=== PATIENT | male | born 1985 | race Caucasian/White ===

== ENCOUNTER 2025-02-14 07:51 | Emergency (ER) | payer OTHER, SELFPAY ==
--- OUTSIDE RECORDS SUMMARY | 2025-01-23 11:24 | XMS_ITS | Encounter Summary ---
Author Organization [place] Address [address] [place] [address] Care Team Providers Care Tax Director Name Role Phone Maryse Rachel Primary Care Provider [phone] Reason for Visit * Reason Comments Hand Pain Encounter Details Date Type Department Care Team (Late st Contact Info) Description 01/23/2025 11:24 AM CDT - 01/23/2025 12:08 PM CDT Emergency [facility] Emergency Dept [address] [place] [id number] Sharon Sales MD [facility] [address] [place], [place] [id number] Contusion of right hand, initial encounter (Primary Dx) Discharge Disposition: Home or Self Care Social History Tobacco Use Types Packs/Day Years Used Date Smoking Tobacco: Every Day Cigarettes Smokeless Tobacco: Never Comments:patient states he i s working on it Alcohol Use Standard Drinks/Week Comments Yes 0 (1 standard drink = 0.6 oz pur e alcohol) occasionally, socially PHQ-2 Answer Date Recorded PHQ-2 Score 2 07/12/2018 Sex and Gender Information Value Date Recorded Sex Assigned at Not on file Legal Sex Male 3:18 PM CDT Gender Identity Not on file Sexual Orientation Not on file documented as of this encounter Last Filed Vital Signs Vital Sign Reading Time Taken Comments Blood Pressure 148/105 01/23/2025 11:[address] Sales aware Pulse 81 01/23/2025 11:55 AM CDT Temperature 36.9 C (98.4 F) 01/23/2025 11:23 AM CDT Respiratory Rate 17 01/23/2025 11:2 3 AM CDT Oxygen Saturation 100% 01/23/2025 11: 55 AM CDT Inhaled Oxygen Concentration - - Weight 98.7 kg (217 lb 9.5 oz) 01/23/2025 11:21 AM CDT Height 190.5 cm (6' 3) 01/23/2025 11:2 1 AM CDT Body Mass Index 27.2 01/23/2025 11:21 AM CDT documented in this encounter Discharge Instructions * Attachments The following attachments cannot be sent through Care Everywhere. * Contusion: Hand (Chilean) documented in this encounter Medications at Time of Discharge citalopram (CELEXA) 20 MG tabletIndications :Panic attack,Anxiety Take 1.5 tablets (30 mg) by mouth daily 135 tablet 3 04/29/2016 Esomeprazole Magnesium (NEXIUM PO) Take 40 mg by mouth every morning (before breakfast) gabapentin (NEURONTIN) 300 MG capsuleIndication s:Anxiety Take 1 capsule (300 mg) by mouth 3 times daily 60 capsule 01/20/2017 naproxen sodium (ALEVE) 220 MG tablet Take by mouth 2 times daily (with meals) SUBOXONE 8-2 MG film 0 04/28/2016 documented as of this encounter ED Notes * Livia Luis RN - 01/23/2025 11:29 AM CDT Ice pack provided * Sharon Sales MD - 01/23/2025 11:25 AM CDT Emergency Department Note History of Present Illness Chief Complaint Hand Pain HPI Edwin Heredia is a 39 year old male with a history of hypertension and prediabetes who is predominately right handed, presents to the emergency department for evaluation of hand pain. The patient reports his right hand getting slammed in the door when he tried to get a bolt lose, prompting his visi t to the ED today. The accident happened around 1000. His hand has been slammed before but this time, he endorses hand shaking which is new. 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 Along with the hand pain, he endorses numbness in his right thumb. He reports no other injuries. Independent Historian None Review of External Notes I reviewed the patient's family medicine note from 01/16, which reports the patient seemed in pain and hoarse, with a lump in his throat, feeling like something was stuck in his throat. From the visit, he was put on Esomeprazole. Past Medical History Medical History and Problem List GERD Hypertriglyceridemia Hypothyroidism Hypertension Prediabetes Medications celecoxib (CELEBREX) 200 MG capsule citalopram (CELEXA) 20 MG tablet Esomeprazole Magnesium (NEXIUM PO) gabapentin (NEURONTIN) 300 MG capsule naproxen sodium (ALEVE) 220 MG tablet SUBOXONE 8-2 MG film Suboxone sl Neurontin Wellbutrin xl Buspar Cipro Folvite Prilosec Deltasone Celexa Surgical History EGD Ir gastro jejunostomy tube placement Ir renal angiogram left Laparoscopic cholecystectomy Physical Exam Patient Vitals for the past 24 hrs: BP Temp Temp src Pulse Resp SpO2 Height Weight 01/23/25 1155 -- -- -- 81 -- 100 % -- -- 01/23/25 1150 (!) 148/105 -- -- -- -- -- -- -- 01/23/25 1123 (!) 174/114 98.4 ??F (36.9 ??C) Temporal 86 17 97 % -- -- 01/23/25 1121 -- -- -- -- -- -- 1.905 m (6' 3) 98.7 kg (217 lb 9.5 oz) Physical Exam General: Patient is awake and alert MSK: Patient has mild tenderness to the right snuffbox but most of the tenderness is centered over the first metacarpal with associated soft tissue swelling. No lacerations. Patient has no tendernessto palpation of wrist, elbow, proximal forearm, or remainder of fingers. He has intact 2 point discrimination to the right thumb, normal okay sign/thumb abduction, interosseous muscle strength, and wrist extension Diagnostics Lab Results Labs Ordered and Resulted from Time of ED Arrival to Time of ED Departure - No data to display Imaging XR Hand Right G/E 3 Views Final Result Addendum (preliminary) 1 of 1 ADDENDUM: There is a typographical error in the report. It should read No evidence of a fracture. Normal alignment. No degenerative changes. END ADDENDUM Final IMPRESSION: N0N0 Joint spaces are preserved. Independent Interpretation None ED Course Medications Administered Medications - No data to display Procedures Procedures Discussion of Management None ED Course ED Course as of 01/23/25 1219 TueJan 23, 2025 1142 I obtained history and examined the patient as noted above Additional Documentation None Medical Decision Making / Diagnosis [facility] Diagnoses: None MIPS None MDM Edwin Heredia is a 39 year old male presents for evaluation of right hand pain after he slammed itagainst metal. X-ray shows no evidence of fracture. Patient is neurovascular intact, low suspicion for compartment syndrome given mechanism but will return if worsening. Had minimal snuffbox tenderness but given that this is Worker's Compensation visit, can follow-up with orthopedic surgery in 1 week for possible repeat x-ray. Blood pressure was also elevated here, he does have a PCP, reports that his blood pressure has been elevated the past several weeks, he will continue to monitor this at home and follow-up with PCP for this no other symptoms of hypertensive emergency. Can take Tylenol ibuprofen for pain. Disposition The patient was discharged. Diagnosis ICD-10-CM 1. Contusion of right hand, initial encounter S60.221A Discharge Medications Discharge Medication List as of 01/23/2025 11:57 AM Scribe Disclosure: I, Haleigh Christine, am serving as a scribe at 12:06 PM on 01/23/2025 to document services personallyperformed by Shaorn Sales MD based on my observations and the provider's statements to me. Sharon Sales MD 01/23/25 1219 * Precious Becerra RN - 01/23/2025 11:21 AM CDT Pt complains of R hand pain after accidentally slamming it against a metal door. documented in this encounter Plan of Treatment Not on file documented as of this encounter Procedures Procedure Name Priority Date/Time Associated Diagnosis Comments XR HAND RIGHT G/E 3 VIEWS STAT 01/23/2025 11:45 AM CDT documented in this encounter Results * XR Hand Right G/E 3 Views (01/23/2025 11:45 AM CDT) Anatomical Region Laterality Modality Hand, Wrist Right Computed Radiogr aphy 01/23/2025 11:4 5 AM CDT Addenda Addendum by Miquel Cardenas MD on 01/23/2025 12:01 PM CDT ADDENDUM: There is a typographical error in the report. It should read No evidence of a fracture. Normal alignment. No degenerative changes. END ADDENDUM Impressions 01/23/2025 11:49 AM CDT IMPRESSION: N0N0 Joint spaces are preserved. Narrative 01/23/2025 11:49 AM CDT EXAM: XR HAND RIGHT G/E 3 VIEWS LOCATION: [facility] DATE: 01/23/2025 INDICATION: trauma COMPARISON: None. Procedure Note Rd Hoffman MD / Miquel Cardenas MD - 01/23/2025 EXAM: XR HAND RIGHT G/E 3 VIEWS LOCATION: [facility] DATE: 01/23/2025 INDICATION: trauma COMPARISON: None. IMPRESSION: N0N0 Joint spaces are preserved. 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
[2025-02-14 07:56] VITALS: BP 131/75; PULSE 66; RESP 18; TEMP 36.6; O2SAT 97; BMI 26.9
--- NOTE | 2025-02-14 08:03 | ED.GENADULT ---
HPI - General Adult General Date Seen: 02/14/25 Chief complaint: Laceration/Wound Stated complaint: right thump cut Time Seen by Provider: 02/14/25 07:54 History of Present Illness HPI narrative: 39-year-old gentleman presenting to the ER today with a work related laceration to his right throughout. He was work this morning when he accidentally cut his right thumb on a piece of sharp metal. Patient is unsure about his tetanus status but per medical record he was updated 4 years ago in 2020. He is generally healthy. No long-term medical problems or immunosuppression. He accidentally cut the dorsum of his right thumb at work this morning. 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 He suffered a laceration because the dorsum of the MCP joint of his thumb and the dorsum of the thenar eminence and webspace between his thumb and index finger. The laceration is probably 5-6 cm total length but most of it is very superficial. Over the radial and laceration directly over the dorsal MCP there is a deeper portion of the laceration that does penetrate through the dermis and gapes 2-3 mm when he flexes his thumb. He did not injure the tendons. No numbness in his thumb. It was having dark red venous nonpulsatile oozing that was brisk at 1st but was easily controlled by direct pressure. No longer bleeding. No other injuries. Related Data Home Medications ?Medication ?Instructions ?Recorded ?Confirmed buprenorphine 8 mg-naloxone 2 mg 1 film sublingual DAILY 02/14/25 02/14/25 sublingual film (Suboxone) bupropion HCl 75 mg tablet 300 mg PO DAILY 02/14/25 02/14/25 buspirone 5 mg tablet 5 mg PO TID 02/14/25 02/14/25 fluoxetine 40 mg capsule 40 mg PO DAILY 02/14/25 02/14/25 gabapentin 600 mg tablet 1,200 mg PO BID 02/14/25 02/14/25 omeprazole 40 mg capsule,delayed 40 mg PO DAILY 02/14/25 02/14/25 release prednisone 10 mg tablet 8 mg PO DAILY 02/14/25 02/14/25 Allergies Allergy/AdvReac Type Severity Reaction Status Date / Time No Known Drug Allergies Allergy Verified 02/14/25 08:08 Exam Narrative: Exam Narrative: Constitutional: Appears well-developed and well-nourished. Alert. Conversant. Non toxic. HENT: Head: Atraumatic. Nose: Nose normal. Mouth/Throat: Oral mucosa is clear and moist. no trismus. Eyes: Conjunctivae normal. EOM normal. Pupils equal, round, and reactive to light. No scleral icterus. Neck: Normal range of motion. Neck supple. No tracheal deviation present. Cardiovascular: Normal rate, regular rhythm. Normal distal cap refill Symmetric radial artery pulses Pulmonary/Chest: Effort normal. No stridor. No respiratory distress. Musculoskeletal: RUE: Patient does have a laceration on the dorsum of his thumb. It is about 5 or 6 cm total length. Most laceration is very superficial and really barely penetrates through the epidermis. On the radial and a laceration the 2 tooth cm directly over the dorsal MCP joint are deeper and the wound opens up about 3 mm when he flexes his thumb down. He does have intact thumb extension, opposition, abduction. Wound is inspected carefully in a bloodless field. No foreign body. It does not penetrate down to the extensor tendon, into the joint capsule of the MCP joint, and does not involve the digital nerves or arterial structures. Otherwise, Normal range of motion. No tenderness. No deformity LUE: Normal range of motion. No tenderness. No deformity RLE: Normal range of motion. No edema. No tenderness. No deformity LLE: Normal range of motion. No edema. No tenderness. No deformity Neurological: Alert and oriented to person, place, and time. Normal strength. CN II-VII intact. No sensory deficit. GCS eye subscore is 4. GCS verbal subscore is 5. GCS motor subscore is 6. Normal coordination . Intact radial and digital nerve sensory function on the radial and ulnar side of the thumb. Skin: Skin is warm and dry. No rash noted. No pallor. Normal capillary refill. Psychiatric: Normal mood. Normal affect. Const: Vital Signs, click to edit/add: Vital Signs - 24 hr 02/14/25 07:56 Temperature 97.8 F Pulse Rate [Pulse Oximeter] 66 Respiratory Rate 18 Blood Pressure [Le ft Upper Arm] 131/75 Pulse Oximetry 97 Oxygen Delivery Me thod Room Air Course Vital Signs Vital signs: Initial Vital Signs Temperature 97.8 F 02/14/25 07:56 Temperature Source Temporal Artery Scan 02/14/25 07:56 Pulse Rate 66 02/14/25 07:56 Pulse Rhythm Regular 02/14/25 07:56 Respiratory Rate 18 02/14/25 07:56 Blood Pressure 131/75 02/14/25 07:56 Blood Pressure Mean 93 02/14/25 07:56 Blood Pressure Position Sitting 02/14/25 07:56 Pulse Oximetry 97 02/14/25 07:56 Oxygen Delivery Method Room Air 02/14/25 07:56 Vital Signs Temperature 97.8 F 02/14/25 07:56 Pulse Rate 66 02/14/25 07:56 Respiratory Rate 18 02/14/25 07:56 Blood Pressure 131/75 02/14/25 07:56 Pulse Oximetry 97 02/14/25 07:56 Oxygen Delivery Method Room Air 02/14/25 07:56 Temperature 97.8 F 02/14/25 07:56 Pulse Rate 66 02/14/25 07:56 Respiratory Rate 18 02/14/25 07:56 Blood Pressure 131/75 02/14/25 07:56 Pulse Oximetry 97 02/14/25 07:56 Oxygen Delivery Method Room Air 02/14/25 07:56 Medical Decision Making MDM Narrative Medical decision making narrative: Findings and exam are consistent with an uncomplicated laceration which was repaired as noted above. There is no evidence at this time to suggest any associated fracture or foreign body. There is no evidence to suggest tendon or arterial injury and patient is neurologically in tact. The patient is to follow up for suture removal as instructed in 8 days. Indications to seek urgent reevaluation and signs of infection (including but not limited to increasing pain, redness, swelling, fevers, and drainage) were reviewed. Tetanus is up-to-date. This is a clean and non-contaminated wound in which prophylactic antibiotics are not indicated. An understanding of the discharge instructions and need for follow up were verbally confirmed. Discharge Plan Discharge Clinical Impression: Laceration Patient Disposition: Home, Self-Care Condition: Stable Instructions: Finger Laceration (ED) Additional Instructions: As we discussed, please see your doctor or come back to the urgent care or ER in 8 days to have your stitches removed. To care for your wound until then: Keep your antibiotic ointment and dressing on today. Keep the wound clean and dry. Starting tomorrow you can take the dressing off once per day. Wash the wound gently with a gauze with warm water. You do not have to use expensive soaps or antiseptics. Cleaned the wound gently to remove any debris or scabs. After the wound is clean, gently dabbed dry. After the wound is dry, reapply antibiotic ointment and a dressing. Keep a dressing covering the wound and stitches every day until the stitches are out so that you will not will snag your stitches during regular activities. Watch for signs of infection (redness, swelling, pus, or fever) and if you have any concerns, please return to the ER or see your doctor right away. Prescriptions: No Action prednisone 10 mg tablet 8 mg PO DAILY gabapentin 600 mg tablet 1,200 mg PO BID bupropion HCl 75 mg tablet 300 mg PO DAILY Rx Instructions: administer 6 hours apart fluoxetine 40 mg capsule 40 mg PO DAILY buspirone 5 mg tablet 5 mg PO TID buprenorphine-naloxone [Suboxone] 8-2 mg film 1 film sublingual DAILY omeprazole 40 mg capsule,delayed release(DR/EC) 40 mg PO DAILY Stand Alone Forms: [facility] Info Instructions Procedures Laceration Right thumb laceration: Verification/time out: correct patient and correct site Site: hand (Right thumb) Side (If applicable): right Size (cm): 2 Description: linear Depth: simple, single layer Local Anesthetic: bupivacaine 0.25% (Total of 2 mL, local infiltration into the laceration) Pre-repair: wound explored and irrigated extensively Skin layer closed with: nylon Size (cm): 5-0 Number of sutures: 3 Technique: simple, interrupted
--- OUTSIDE RECORDS SUMMARY | 2025-02-14 08:50 | XMS_ITS | Encounter Summary ---
Author Organization [place] Address [address] [place] [address] Care Team Providers Care Lithographer Helper Name Role Phone Maryse Rachel DO Primary Care Provider [phone] Reason for Visit * Reason Comments Orders DME ORDER Encounter Details Date Type Department Care Team (Latest Contact Info) Description 02/08/2025 Documentation Only [facility] Emergency Dept [address] [place] [address] Bebo Beltran MD Orders (DME ORDER) Social History Tobacco Use Types Packs/Day Years [...] on file documented as of this encounter Plan of Treatment Not on file documented as of this encounter Visit Diagnoses Diagnosis Contusion of right hand, initial encounter- Primary documented in this encounter Additional Health Concerns Assessment Noted Time PHQ-9 Depression Total Score: 9 07/09/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
--- OUTSIDE RECORDS SUMMARY | 2025-02-14 08:50 | XMS_ITS | Encounter Summary ---
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
--- OUTSIDE RECORDS SUMMARY | 2025-02-14 08:51 | XMS_ITS | Clinical Summary ---
Author Organization [place] Address [address] [place] [id number] Care Team Providers Care Wireless Telegrapher Name Role Phone Wilson Maryse Primary Care Provider [phone] Allergies Active Allergy Reactions Criticality Noted Date Comments No Known Allergies 04/02/2014 Olanzapine Other (See Comments),Unknown,An aphylaxis High 12/13/2021 ? Pancreatitis, internal bleeding ? pancreatitis Medications naproxen sodium (ALEVE) 220 MG tablet Take by mouth 2 times daily (with meals) Active citalopram (CELEXA) 20 MG tabletIndicatio ns:Panic attack,Anxiety Take 1.5 tablets (30 mg) by mouth daily 135 tablet 3 04/29/2016 Active SUBOXONE 8-2 MG film 0 04/28/2016 Active Esomeprazole Magnesium (NEXIUM PO) Take 40 mg by mouth every morning (before breakfast) Active celecoxib (CELEBREX) 200 MG capsule Take 1 capsule (200 mg) by mouth daily for 14 days 15 capsule 0 06/29/2016 Active gabapentin (NEURONTIN) 300 MG capsuleIndicati ons:Anxiety Take 1 capsule (300 mg) by mouth 3 times daily 60 capsule 01/20/2017 Active Active Problems Problem Noted Date Diagnosed Date Acute pain of left shoulder 07/08/2016 Tobacco use 07/08/2016 Need for prophylactic vaccin ation and inoculation against influenza 07/08/2016 Need for prophylactic vaccin ation with tetanus-diphtheria (Td) 07/08/2016 Depression 07/08/2016 History of acute pancreatitis 07/08/2016 Elevated ALT measurement 03/04/2016 Overview (08/24/2017): Overview: Since January 2016 Overview: Since January 2016 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 In brother. Cholecystitis 04/01/2014 Anxiety 10/31/2013 Encounters Date Type Department Care Team Description 02/08/2025 Documentation Only [facility] Emergency Dept [address] [place] [address] Bebo Beltran MD Orders (DME ORDER) 01/23/2025 11:24 AM CDT - 01/23/2025 12:08 PM CDT Emergency [facility] Emergency Dept [address] [place] [address] Sharon Sales MD Contusion of right hand, initial encounter (Primary Dx) Discharge Disposition: Home or Self Care 01/23/2025 Travel from Last 3 Months Immunizations Immunization Administration Dates Next Due HIB (PRP-T) 02/16/1988 HepB 03/02/2001,03/04/1998 MMR (MMRII) 03/04/1998,08/21/1990,12/16/1986 Poliovirus, inactivated (IPV) 08/21/1990 ,02/16/1988,11/18/1986,09/17/1986, TD,PF 7+ (Tenivac) 03/04/1998 TDAP Vaccine (Adacel) 07/08/2016 Family History Medical History Relation Comments Diabetes Brother type 1 Gastrointestinal Disease Father reflux Hypertension Mother Relation Status Comments Brother Father Alive Maternal Grandfather Alive Maternal Grandmother Alive Mother Alive Paternal Grandfather Paternal Grandmother Alive Social History Tobacco Use Types Packs/Day Years Used Date Smoking Tobacco: Every Day Cigarettes Smokeless Tobacco: Never Tobacco Cessation:Ready to Q uit: No Comments:patient states he is working on it Alcohol Use Standard Drinks/Week Comments Yes 0 (1 standard drink = 0.6 oz pur e alcohol) occasionally, socially PHQ-2 Answer Date Recorded PHQ-2 Score 2 07/12/2018 Sex and Gender Information Value Date Recorded Sex Assigned at Not on file Legal Sex Male 3:18 PM CDT Gender Identity Not on file Sexual Orientation Not on file Last Filed Vital Signs Vital Sign Reading [...] Mass Index 27.2 01/23/2025 11:21 AM CDT Plan of Treatment Health Maintenance Due Date Last Done Comments ADVANCE CARE PLANNING 1985 ANNUAL REVIEW OF HM ORDERS 1985 CONTROLLED SUBSTANCE AGREEMENT FOR CHRONIC PAIN MANAGEMENT 1985 NICOTINE/TOBACCO CESSATION COUNSELING Q 1 YR 1985 JA ASSESSMENT 07/08/2017 07/08/2016, 12/02, 10/01/2015, Additional history exists PHQ-9 07/08/2017 07/08/2016, 01/02, 01/26/2016, Additional history exists URINE DRUG SCREEN 08/17/2017 08/17/2016 YEARLY PREVENTIVE VISIT 02/28/2019 02/28/2018, 08/08 DIABETES SCREENING 08/17/2019 08/17/2016, 0 01/26/2016, 01/24/2016, Additional history exists COVID-19 VACCINE ( season) 2024 06/20/2023, 09/08/2021, 01/03/2021, Additional history exists PHQ-2 (once per calendar year) 2024 07/08/2016, 07/08/2016, 04/29/2016, Additional history exists INFLUENZA VACCINE (#1) 2025 3, 04/14/2022, 07/07/2021, Additional history exists DTAP/TDAP/TD VACCINE (9 - Td or Tdap) 03/23/2031 03/23/2021, 07/08/2016, 05/14/2010, Additional history exists PNEUMOCOCCAL VACCINE: PEDIATRICS (0 to 5 YEARS) AND AT-RISK PATIENTS (6 to 49 YEARS) (3 of 3 - PCV20 or PCV21) 2035 05/19/2023, 05/05/2022 ZOSTER VACCINE (1 of 2) 2035 HEPATITIS A VACCINE Completed 03/02/2001, 8 HEPATITIS B VACCINE Completed 07/07/2021, 03/02/2001, 03/02/2001, Additional history exists HIV SCREENING Completed 10/02/2022, 03/03/2016 MENINGITIS VACCINE Aged Out 05/19/2023, 04/27/2005 No longer eligible based on patient's age to complete this topic HEPATITIS C SCREENING Completed 11/07/2024 , 09/10/2021, 11/17/2018 HPV VACCINE (No Doses Required) Completed Procedures Procedure Name Priority Date/Time Associated Diagnosis Comments XR HAND RIGHT G/E 3 VIEWS STAT 01/23/2025 11:45 AM CDT DRUG ABUSE SCREEN (NL, RW) Routine 08/17/2016 4:00 PM [employer] COMPREHENSIVE METABOLIC PANEL STAT 08/17/2016 12:40 PM [employer] from Last 3 Months or Most Recently Relevant to Health Maintenance Results * XR Hand Right G/E 3 [...] XR HAND RIGHT G/E 3 VIEWS LOCATION: [facility] DATE: 01/23/2025 INDICATION: trauma COMPARISON: None. Procedure Note Rd Hoffman MD / Miquel Cardenas MD - 01/23/2025 EXAM: XR HAND RIGHT G/E 3 VIEWS LOCATION: [facility] DATE: 01/23/2025 INDICATION: trauma COMPARISON: None. IMPRESSION: N0N0 Joint spaces are preserved. us Sharon Sales MD IMG DIAGNOSTIC IMAGING ORDER ROSEMARY Edited Result - Final * (ABNORMAL) Drug abuse screen (08/17/2016 4:00 PM [employer]) Methamphetamine Qual Urine Negative Cutoff for a negative methamphetamine is 1000 ng/mL or less. [facility] Cocaine Qual Urine Negative Cutoff for a negative cocaine is 300 ng/mL or less. [facility] Cannabinoids Qual Urine Negative Cutoff for a negative cannabinoid is 50 ng/mL or less. [facility] MDMA Qual Urine Negative Cutoff for a negative MDMA (ecstasy) is 500 ng/mL or less. [facility] Methadone Qual Urine Negative Cutoff for a negative methadone is 300 ng/mL or less. [facility] Opiates Qualitative Urine Positive Cutoff for a positive opiate is greater than 300 ng/mL. This is an unconfirmed screening result to be used for medical purposes only. (A) [facility] Benzodiazepine Qual Urine Negative Cutoff for a negative benzodiazepine is 300 ng/mL or less. [facility] Tricyc Anti Qual Urine Negative Cutoff for a negative tricyclic antidepressant is 1000 ng/mL or less. [facility] Barbiturates Qual Urine Negative Cutoff for a negative barbituate is 300 ng/mL or less. [facility] PCP Qual Urine Negative Cutoff for a negative PCP is 25 ng/mL or less. [facility] Amphetamine Qual Urine Negative Cutoff for a negative amphetamine is 1000 ng/mL or less. [facility] Oxycodone Qual Urine Negative Cutoff for a negative Oxycodone is 100 ng/mL or less. [facility] Urine specimen (specimen) URINE SPECIMEN COLLECTION, CATHETERIZED / Unknown 08/17/2016 4:00 PM [employer] 08/17/2016 4:08 PM [employer] us Sukhjinder Riley MD LAB - URINE ORDERABLE S Final Result [facility] [address] [place] [address], [facility] [phone] * (ABNORMAL) Comprehensive metabolic panel (08/17/2016 12:40 PM [employer]) Sodium 141 133 - 144 mmol/L [facility] Potassium 3.3(L) 3.4 - 5.3 mmol/L [facility] Chloride 105 94 - 109 mmol/L [facility] Carbon Dioxide 29 20 - 32 mmol/L [facility] Anion Gap 7 3 - 14 mmol/L [facility] Glucose 124(H) 70 - 99 mg/dL [facility] Urea Nitrogen 16 7 - 30 mg/dL [facility] Creatinine 0.82 0.66 - 1.25 mg/dL [facility] GFR Estimate >90 Non GFR Calc >60 mL/min/1. 7m2 [facility] GFR Estimate If Black >90 GFR Calc >60 mL/min/1. 7m2 [facility] Calcium 8.1(L) 8.5 - 10.1 mg/dL [facility] Bilirubin Total 0.6 0.2 - 1.3 mg/dL [facility] Albumin 3.7 3.4 - 5.0 g/dL [facility] Protein Total 6.7(L) 6.8 - 8.8 g/dL [facility] Alkaline Phosphatase 77 40 - 150 U/L [facility] ALT 70 0 - 70 U/L [facility] AST 42 0 - 45 U/L [facility] Blood specimen (specimen) 08/17/2016 12:40 PM [employer] 08/17/2016 12:49 PM [employer] us Sukhjinder Riley MD LAB - BLOOD ORDERABLE S Final Result [facility] [address] [place], [place] [address], [facility] [phone] from Last 3 Months or Most Recently Relevant to Health Maintenance Insurance [facility] BCBS [facility] [id number] [place] [id number] Care Teams Wireless Telegrapher Relationship Specialty Start Date End Date Maryse Rachel DO [address] [place] [id number] PCP - General Family Practice 01/23/25
--- OUTSIDE RECORDS SUMMARY | 2025-02-14 08:51 | XMS_ITS | Clinical Summary ---
Author Organization [employer] & [facility] Address [address] [place] [id number] Care Team Providers Care Grounds Maintenance Supervisor Name Role Phone Maryse Rachel Primary Care Provider [phone] Allergies Active Allergy Reactions Criticality Noted Date Comments Olanzapine Other - Describe In Comment Field Low 12/13/2021 Pancreatitis, internal bleeding Medications * This document contains information received from the source organization and may not represent a complete record from that organization. Suboxone 8-[address] 1.5 Film under the tongue once daily with lunch. Active esomeprazole delayed release capsule (NEXIUM) 40 mg Take 40 mg by mouth once daily before a meal. Active clonazePAM 0.5 mg tabletIndications:A nxiety Take 1 Tablet (0.5 mg) by mouth 2 times daily if needed for Anxiety. 20 Tablet 10/12/19 25 Active predniSONE 5 mg tabletIndications:A drenal insufficiency (HC),Rheumatoid arthritis, involving unspecified site, unspecified whether rheumatoid factor present (HC) Take 1 Tablet (5 mg) by mouth once daily. 90 Tablet 10/20/19 25 Active acetaminophen 500 mg tabletIndications:C ellulitis of right lower leg Take 2 Tablets (1,000 mg) by mouth three times daily. Max acetaminophen dose: 4000mg in 24 hrs. 11/19/19 25 Active ibuprofen 600 mg tabletIndications:C ellulitis of right lower leg Take 1 Tablet (600 mg) by mouth every 6 hours if needed for Pain. Maximum of 3200 mg in 24 hours. 11/19/19 25 Active fenofibrate nanocrystallized 145 mg tabletIndications:H ypertriglyceridemia Take 1 Tablet (145 mg) by mouth once daily with a meal. 30 Tablet 12/05/19 25 Active FLUoxetine (PROZAC) 40 mg capsuleIndications: Generalized anxiety disorder with panic attacks,Depression, unspecified depression type Take 1 Capsule (40 mg) by mouth once daily. 30 Capsule 1 01/10/20 25 Active gabapentin (NEURONTIN) 600 mg tabletIndications:G eneralized anxiety disorder with panic attacks,Alcohol use disorder Take 2 Tablets (1,200 mg) by mouth two times daily. 120 Tablet 1 01/10/20 25 Active buPROPion (WELLBUTRIN XL) 300 mg Extended-Release tabletIndications:D epression, unspecified depression type,History of ADHD Take 1 Tablet (300 mg) by mouth once daily. 30 Tablet 1 01/10/20 25 Active busPIRone (BUSPAR) 5 mg tabletIndications:G eneralized anxiety disorder with panic attacks,Depression, unspecified depression type Take 1 Tablet (5 mg) by mouth three times daily. 90 Tablet 1 01/10/20 25 Active omeprazole (PRILOSEC) 20 mg Delayed-Release capsuleIndications: Gastroesophageal reflux disease, unspecified whether esophagitis present Take 2 Capsules (40 mg) by mouth two times daily before meals. 60 Capsule 01/17/20 25 2024 Active predniSONE 1 mg tabletIndications:A drenal insufficiency (HC),Rheumatoid arthritis, involving unspecified site, unspecified whether rheumatoid factor present (HC) Take 3 Tablets (3 mg) by mouth once daily with a meal. Take with 5 mg tablet for a total of 8 mg daily 270 Tablet 10/20/19 25 2024 Active Problems Problem Noted Date Diagnosed Date Hypertriglyceridemia 12/03/2024 Cellulitis of right lower extremity 11/16/2024 Opioid dependence 11/16/2024 Alcohol-induced acute pancre atitis without infection or necrosis 07/04/2024 Overview (07/04/2024): 07/04/2024 Drank alcohol last night. Vlltyu=700 with abdominal pain. EXAM: CT ABDOMEN PELVIS W LOCATION: [facility] DATE: 07/04/2024 INDICATION: Pancreatitis, acute, severe. COMPARISON: 05/13/2015 TECHNIQUE: CT scan of the abdomen and pelvis was performed following injection of IV contrast. Multiplanar reformats were obtained. Dose reduction techniques were used. CONTRAST: Omnipaque 350 100 mL FINDINGS: LOWER CHEST: Normal. HEPATOBILIARY: Cholecystectomy. PANCREAS: The pancreas is atrophic with multiple calcifications in the pancreas typical of chronic pancreatitis. Nothing for acute pancreatitis. SPLEEN: Irregularity of the splenic contour presumably related to previous infarcts. 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 ADRENAL GLANDS: Normal. KIDNEYS/BLADDER: Dense linear metallic fragment lower pole left kidney measuring approximately 10 mm. No hydronephrosis. Benign cyst right kidney requiring no follow-up. BOWEL: Normal. LYMPH NODES: Normal. VASCULATURE: Chronic occlusion of the splenic vein. PELVIC ORGANS: Normal. MUSCULOSKELETAL: Right hip arthroplasty. IMPRESSION: 1. Nothing for acute pancreatitis. 2. Changes of chronic pancreatitis. 3. 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 4. Linear structure in the lower pole of the left kidney is of metallic density presumably related to previous instrumentation. Fatty liver due to alcoholism 11/05/2023 Primary hypertension 06/20/2023 Prediabetes 03/25/2023 Overview (10/19/2024): Last Assessment & Plan: Status: Improved Testing: A1C improved from 6 to 5.5. Treatments: Healthy lifestyle Medications: Metformin Plan: Continue same. Monitor. Other osteoporosis without current pathological fracture 12/21/2022 Chronic pancreatitis 12/03/2022 Overview (10/19/2024): Last Assessment & Plan: Status: Stable. Denies symptoms currently. Testing: Reviewed abdominal imaging. CT A/P 02/14/2023 with necrotizing pancreatitis. Labs including lipase/amylase which were elevated. Treatments: Healthy lifestyle. Abstain from alcohol. Avoid fatty foods. Medications: NA Plan: Continue same. Monitor. Has follow up with [facility]. Rheumatoid arthritis 11/09/2022 Overview (10/19/2024): Last Assessment & Plan: Status: Patient not convinced this is an accurate diagnosis. Documented by rheumatology 12/2022 as history of peripheral polyarthritis, undifferentiated inflammatory arthritis. Currently denies joint pains. Testing: RF neg. Treatments: healthy lifestyle Medications: Prednisone (trying to taper off) Plan: Continue same. Monitor. Continue to follow with rheumatology, endocrinology. Clotting disorder 11/06/2022 Overview (10/19/2024): Hx of PE Moderate protein-calorie malnutrition 10/22/2022 Overview (10/19/2024): Last Assessment & Plan: Status: Slowly improving. Lost 30lbs with last hospitalization. Working on gaining some back. Testing: Protein, albumin remain low. Treatments: Healthy lifestyle. Adequate caloric and protein intake. Medications: NA Plan: Continue to work on small frequent meals, high protein. Monitor. Adrenal insufficiency 09/29/2022 Overview (10/19/2024): Last Assessment & Plan: Status: Secondary to chronic prednisone use. Currently doing well, but has struggled to tolerate dose reduction of prednisone. Testing: Reviewed endocrinology testing. Adrenal glands on CT normal. Treatments: Healthy lifestyle Medications: Prednisone Plan: Continue to work on very slow wean of prednisone. Follow up with endocrinology. 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 Treatments: Healthy lifestyle. Avoid alcohol. Medications: Previously on apixiban, stopped due to bleeding. Plan: Continue same. Monitor. Has follow up with [place]. Cochlear implant in place 05/25/2022 Asymmetrical sensorineural hearing loss 05/05/20 Moderate episode of recurrent major depressive d isorder 07/07/2021 Overview (10/19/2024): Last Assessment & Plan: Status: Ongoing. Patient states better than it was, but not great. No thoughts or intentions for self harm. Testing: Recommend PHQ9, GAD7 at least annually. Today PHQ9= 9. Treatments: Healthy lifestyle. Social support. Mindfulness. Medications: Fluoxetine, clonidine, gabapentin. Plan: Continue same. Monitor. Patient open to counseling, referral sent to T. JA (generalized anxiety disorder) 07/07/2021 Overview (10/19/2024): Last Assessment & Plan: Status: Ongoing. Patient states better than it was, but not great. Feels he has more issues with anxiety than depression. Testing: Recommend PHQ9, GAD7 at least annually. Today PHQ9= 9. Treatments: Healthy lifestyle. Social support. Mindfulness. Medications: Fluoxetine, clonidine, gabapentin. Plan: Continue same. Monitor. Patient open to counseling, referral sent to T. History of pulmonary embolism 04/12/2021 Tobacco use 07/08/2016 Elevated ALT measurement 03/04/2016 Overview (10/19/2024): Since January 2016 Since January 2016 Since January 2016 Encounter for monitoring Suboxone maintenance th erapy 03/03/2016 Controlled substance agreement signed 03/03/2016 Substance abuse in remission 03/03/2016 Overview (10/19/2024): Alcohol, Heroin, Cocaine Gastroesophageal reflux disease without esophagi tis 10/03/2015 Family history of type 1 diabetes mellitus 04/25 Overview (03/17/2016): Overview: In brother. Cholecystitis 04/01/2014 History of alcohol use disorder 04/18/2013 Hypothyroidism 05/20/2008 Overview (10/19/2024): [id number] History of acute pancreatitis Depression Anxiety Resolved Problems Problem Noted Date Diagnosed Date Resolved Date Necrotizing pancreatitis 01/21/2016 Pancolitis 01/21/2016 04/28/2016 Diarrhea 01/19/2016 03/03/2016 Thrombocytopenia 01/19/2016 12/03/2024 Alcohol withdrawal 01/17/2016 6 Alcohol-induced acute pancreatitis 01/16/2016 04/28/2016 Hypomagnesemia 01/16/2016 01/19/2016 Acid reflux 01/19/2016 Encounters Date Type Department Care Team Description 01/16/2025 1:00 PM CDT Office Visit [facility] [address] [place] [address] Nathanael Alexander NP Throat Problem (throat pain, hoarse voice, feels like he has a lump in his throat. has issues with acid reflux) 01/16/2025 Travel 01/15/2025 Nurse Triage [facility] [address] [place] [address] Maryse Rachel DO Throat Problem 01/09/2025 9:00 AM CDT Telemedicine [facility] [address] [place] [phone] Ann Wells NP Mental Health Intake; Telehealth (SD) 12/31/2024 Telephone [facility] [address] [place] [address] Ann Wells NP Appointment Reminder (Adult intake call ) 12/07/2024 2:15 PM CDT Office Visit [facility] [address] [place] [address] Heide Bradford NP Back Pain (patient presents with right sided back x4 days- he reports being admitted for pancreatitis on 12/02) 12/07/2024 Travel 12/07/2024 Nurse Triage [facility] [address] [place] [address] Maryse Rachel DO Flank Pain 12/05/2024 Patient Outreach [facility] [address] [place] [address] Tiny Felix, RN [facility] Hospital F/U (Chronic pancreatitis (HC) /DOD 12/04/24) 12/02/2024 9:47 PM CDT - 12/04/2024 8:37 AM CDT Hospital Encounter [facility] [address] [place] [address] Ela Ball MD Gooley, Brian Thomas, MD Hospitalist, [facility] Igor Soni MBBS Grunewald, Justin William, MD McQuistan, Mitesh Reyna, Acute on chronic pancreatitis (HC) (Primary Dx); Hypertriglyceridemia Discharge Disposition: Home Self Care 12/02/2024 Travel 11/22/2024 9:40 AM CDT Office Visit [facility] [address] [place] [address] Maryse Rachel DO Hospital F/U (Cellulitis ) 11/22/2024 Travel 11/19/2024 Patient Outreach [facility] [address] [place] [address] Mago Ellis, STEVIE Primary RN Care Management (LACE: 75); Hospital F/U (Diagnosis: Cellulitis of right lower extremity DOD: 11/18/24) 11/16/2024 7:14 AM CDT - 11/18/2024 10:09 AM CDT Hospital Encounter [address] [address] Derrell Cristobal MD Hospitalist, [facility] Mitesh Balbuena DO Cellulitis of right lower leg (Primary Dx) Discharge Disposition: Home Self Care 11/16/2024 Travel 11/14/2024 5:15 PM CDT - 11/14/2024 5:36 PM CDT Emergency [address] [address] Derrell Cristobal MD Cellulitis of right lower leg (Primary Dx) Discharge Disposition: Home Self Care 11/14/2024 Travel from Last 3 Months Immunizations Immunization Administration Dates Next Due DTP 03/04/1998, 1,02/16/1988,11/18,09/17/1986,02/16/1986 HIB PRP-D (ProHIBIT) 03/01/1988 HIB PRP-OMP (PedvaxHIB) 03/01/1988,02/16/1988 HIB PRP-T (ActHIB,Hiberix) 02/16/1988 Hepatitis B (Adult) 07/07/2021 Hepatitis B (Peds) 03/02/2001,03/04/1998 Hepatitis B, Unspecified 03/02/2001,02/03,03/04/1998,03/04 Hib Conjugate, Unspecified 03/01/1988,02/16/1988 INFLUENZA, IIV3 PF (AGE >= 6 MO) 08/08/2013 Inactivated Polio Vaccine 08/21/1990,,11/18/1986,09/17,02/16/1986 Influenza RIV4 (Age 18+ Year s) PRESERV FREE 04/17/2023 Influenza Virus, Unspecified 04/17/2023,04/14/20 22,07/07/2021 Influenza, IIV4 04/14/2022,07/07/2021 MENINGOCOCCAL VACCINE (MENQU ADFI 0.5ML) 2YO+ POLYSACCHARIDE PF 05/19/2023 MMR 03/04/1998,08/21/1990,12/16/1986 Meningococcal Vaccine (Menactra) 04/27/2005 Oral Polio Vaccine 02/16/1988, 7,11/08/1986,09/17,02/16/1986 Pneumococcal Poly,23-Valent (Pneumovax) 05/19/2023 Pneumococcal conj 13-Valent (Prevnar 13) 05/05/2022 Polio Virus, Unspecified 08/21/1990,02/01,11/18/1986,09/17,02/16/1986 Td (Age >=7 Years) 03/04/1998 Td, Preservative Free (age >= 7 Years) 8 Tdap 03/23/2021,07/08/2016,05/14/2010 Tuberculin (PPD) 04/17/2013 meningococcal B, Recombinant 06/20/2023,05/19/20 23 Family History Relation Name Status Comments Brother 1 Alive Brother 2 Alive Brother 3 Alive Father Alive Mother Alive Social History Tobacco Use Types Packs/Day Years Used Date Smoking Tobacco: Former Cigarettes Smokeless Tobacco: Never Tobacco Cessation:Counseling Given: No Alcohol Use Standard Drinks/Week Comments Yes 0 (1 standard drink = 0.6 oz pure alcohol) occasionally and binges at those times. PHQ-2 Answer Date Recorded PHQ-2 TOTAL SCORE 1 10/19/2024 Social Connections Answer Date Recorded Do you often feel lonely or isolated from those around you? 0 12/03/2024 Financial Resource Strain Answer Date R ecorded Difficulty of Paying Living Expenses 3 12/03/2024 Difficulty of Paying Living Expenses Not on file 12/03/2024 Food Insecurity Answer Date Recorded Do you worry your food will run out before you are able to buy more? 1 12/03/2024 Transportation Needs Answer Date Record ed Does lack of transportation keep you from medica l appointments? 1 12/03/2024 Does lack of transportation keep you from work, meetings or getting things that you need? 1 12/03/2024 Housing Stability Answer Date Recorded What is your housing situation today? 1 12/03/2024 Interpersonal Safety Answer Date Record ed Are you being hit, kicked, p ushed or yelled at (see row info)? No 12/02/2024 Interpersonal Safety Abuse 12 - 18 Not on file 12/02/2024 Interpersonal Safety Ambulatory Vulnerability No t on file 12/02/2024 Utilities Answer Date Recorded Do you have trouble paying f or utilities (for example, heat, electricity, water, phone)? 1 12/03/2024 Sex and Gender Information Value Date Recorded Sex Assigned at Not on file Legal Sex Male 3:21 PM CDT Gender Identity Not on file Sexual Orientation Not on file Occupation Industry Job Start Date Job End Date [employer] Not on file Not on file Not on file Obstetrics History Last Filed Vital Signs Vital Sign Reading Time Taken Comments Blood Pressure 140/88 01/16/2025 1:03 PM CDT Pulse 80 01/16/2025 1:03 PM CDT Temperature 37.1 C (98.7 F) 01/16/2025 1:03 PM CDT Respiratory Rate 18 01/16/2025 1:03 PM CDT Oxygen Saturation 97% 01/16/2025 1:03 PM CDT Inhaled Oxygen Concentration - - Weight 97.5 kg (215 lb) 01/16/2025 1:03 PM CDT Height 190.5 cm (6' 3) 12/03/2024 3:53 AM CDT Body Mass Index 26.87 12/03/2024 3:53 AM CDT Plan of Treatment Upcoming Encounters Date Type Department Care Team (Late st Contact Info) Description 02/25/2025 3:30 PM CDT Office Visit [facility] [id number] [place], [place] [id number] [place] [address] [facility] [place] [address] 03/06/2025 8:00 AM CDT Office Visit [facility] [address] [place] [phone] Francoise Alanis, SAM [address] [place], [place] [address] 03/12/2025 1:30 PM CDT Office Visit [facility] [address] [place], [place] [phone] Abdiaziz Nelson MD [address] [place] [address] Health Maintenance Due Date Last Done Comments Lipids for age 35-44 2020 COVID-19 vaccine series (2023- season) 2024 06/20/2023, 06/20/2023, 09/08/2021, Additional history exists Influenza Vaccine (#1) 2025 , 04/17/2023, 04/14/2022, Additional history exists BMI (ht and wt on same day) for age 18+ 10/11/2025 10/11/2024, 08/26/2016, 07/19/2016, Additional history exists Depression screening for age 12+ 10/19/2025 10/19/2024, 01/30/2016, 01/26/2016 Tetanus booster 03/23/2031 03/23/2021, 11/2016, 05/14/2010, Additional history exists Pneumococcal series for age 6-49 (3 of 3 - PCV20 or PCV21) 2035 05/19/2023, 05/05/2022 HIV for age 15-65 Completed 03/03/2016 Hepatitis B series for 19+ Completed 07/07, 03/02/2001, 03/02/2001, Additional history exists Hepatitis C screening for ag e 18-79 Completed 11/07/2024, 03/03/2016 Procedures Procedure Name Priority Date/Time Associated Diagnosis Comments CALCIUM Early AM 12/04/2024 6:14 AM CDT TRIGLYCERIDES Early AM 12/04/2024 6:14 AM CDT SODIUM Early AM 12/04/2024 6:14 AM CDT POTASSIUM Early AM 12/04/2024 6:14 AM CDT CREATININE Early AM 12/04/2024 6:14 AM CDT WHITE BLOOD COUNT Early AM 12/04/2024 6:1 4 AM CDT HEMOGLOBIN Early AM 12/04/2024 6:14 AM CDT C-REACTIVE PROTEIN Early AM 12/04/2024 6: 14 AM CDT LACTATE VENOUS Today 12/03/2024 1:09 PM CDT CALCIUM Today 12/03/2024 1:09 PM CDT TRIGLYCERIDES Today 12/03/2024 1:09 PM CDT WHITE BLOOD COUNT Today 12/03/2024 1:0 9 PM CDT HEMOGLOBIN Today 12/03/2024 1:09 PM CDT CREATININE Today 12/03/2024 1:09 PM CDT POTASSIUM Today 12/03/2024 1:09 PM CDT BUN Today 12/03/2024 1:09 PM CDT SODIUM Today 12/03/2024 1:[address] ABDOMEN PELVIS W STAT 12/02/2024 1 1:23 PM CDT TRIGLYCERIDES PAVEL 12/02/2024 10:00 PM CDT CBC WITH AUTO DIFFERENTIAL STAT 12/02/2024 10:00 PM CDT LIPASE STAT 12/02/2024 10:00 PM CDT COMP METABOLIC PANEL STAT 12/02/2024 10:00 PM CDT CBC WITH AUTO DIFFERENTIAL STAT 12/02/2024 10:00 PM CDT C-REACTIVE PROTEIN Early AM 11/18/2024 6: 42 AM CDT WHITE BLOOD COUNT Early AM 11/18/2024 6:4 2 AM CDT C-REACTIVE PROTEIN Early AM 11/17/2024 6: 27 AM CDT WHITE BLOOD COUNT Early AM 11/17/2024 6:2 7 AM CDT CREATININE Early AM 11/17/2024 6:27 AM CDT US VENOUS LOWER EXTREMITY RIGHT PORTABLE STAT 11/16/2024 8:08 AM CDT CBC WITH AUTO DIFFERENTIAL PAVEL 11/16/2024 7:34 AM CDT PROTIME-INR PAVEL 11/16/2024 7:34 AM CDT LACTATE VENOUS Today 11/16/2024 7:34 AM CDT CBC WITH AUTO DIFFERENTIAL PAVEL 11/16/2024 7:34 AM CDT C-REACTIVE PROTEIN PAVEL 11/16/2024 7: 34 AM CDT BASIC METABOLIC PANEL PAVEL 11/16/2024 7:34 AM CDT ANTI HCV Routine 11/07/2024 3:08 PM CDT History of inflammatory arthritis ANTI HIV 1/2 Routine 03/03/2016 12:21 PM CDT Encounter for monitoring Suboxone maintenance therapy from Last 3 Months or Most Recently Relevant to Health Maintenance Results * WHITE BLOOD COUNT (12/04/2024 6:14 AM CDT) Only the most recent of4 resultswithin the time period is included. WHITE BLOOD COUNT 4.6 4.5 - 11.0 thou/cu mm 12/04/2024 6:28 AM CDT [facility] NRBC 0.0 % 12/04/2024 6:28 AM CDT [facility] ABS NRBC 0.0 thou /cu mm 12/04/2024 6:28 AM CDT [facility] Blood BLOOD SPECIMEN / Unknown Venipuncture / Unknown 12/04/2024 6:14 AM CDT 12/04/2024 6:23 AM CDT Mitesh Thomas DO HEMATOLOGY Final Resu lt [facility] [place] [address], * (ABNORMAL) HEMOGLOBIN (12/04/2024 6:14 AM CDT) Only the most recent of2 resultswithin the time period is included. HEMOGLOBIN 12.8(L) 13.5 - 17.5 g/dL 12/04/2024 6:28 AM CDT [facility] MCV 87 80 - 100 fL 12/04/2024 6:28 AM CDT [facility] Blood BLOOD SPECIMEN / Unknown Venipuncture / Unknown 12/04/2024 6:14 AM CDT 12/04/2024 6:23 AM CDT Mitesh Thomas DO HEMATOLOGY Final Resu lt Performing Organization Address City/[facility]/ZIP Co de Phone Number [facility] [address] [place] [phone], [place] [phone] * (ABNORMAL) TRIGLYCERIDES (12/04/2024 6:14 AM CDT) Only the most recent of3 resultswithin the time period is included. TRIGLYCERIDES 347(H) <150 mg/dL 12/04/2024 6:49 AM CDT [facility] PROVIDER ORDERED STATUS RANDOM 12/04/2024 6:49 AM CDT [facility] Blood BLOOD SPECIMEN / Unknown Venipuncture / Unknown 12/04/2024 6:14 AM CDT 12/04/2024 6:23 AM CDT Mitesh Thomas DO CHEMISTRY Final Resu lt Performing Organization Address City/[facility]/ZIP Co de Phone Number [facility] [address] [place] [id number], [place] [phone] * SODIUM (12/04/2024 6:14 AM CDT) Only the most recent of2 resultswithin the time period is included. SODIUM 138 136 - 145 mmol/L 12/04/2024 6:49 AM CDT [facility] Blood BLOOD SPECIMEN / Unknown Venipuncture / Unknown 12/04/2024 6:14 AM CDT 12/04/2024 6:23 AM CDT Mitesh Thomas DO CHEMISTRY Final Resu lt [facility] [address] [place] [address], [place] [phone] * POTASSIUM (12/04/2024 6:14 AM CDT) Only the most recent of2 resultswithin the time period is included. Pathologist [facility] POTASSIUM 3.7 3.5 - 5.1 mmol/L 12/04/2024 6:49 AM CDT [facility] Blood BLOOD SPECIMEN / Unknown Venipuncture / Unknown 12/04/2024 6:14 AM CDT 12/04/2024 6:23 AM CDT Mitesh Thomas DO CHEMISTRY Final Resu lt [facility] [address] [place] [address], [place] [phone] * CREATININE (12/04/2024 6:14 AM CDT) Only the most recent of3 resultswithin the time period is included. [facility] eGFR >90 >90 mL/min/1.7 3m2 12/04/2024 6:49 AM CDT [facility] Comment:As of 2021, eG FR is calculated by the CKD-EPI creatinine equation without race adjustment. eGFR can be influenced by muscle mass, exercise, and diet. The reported eGFR is an estimation only and is only applicable if the renal function is stable. CREATININE 0.96 0.70 - 1.20 mg/dL 12/04/2024 6:49 AM CDT [facility] Blood BLOOD SPECIMEN / Unknown Venipuncture / Unknown 12/04/2024 6:14 AM CDT 12/04/2024 6:23 AM CDT us Mitesh Thomas DO CHEMISTRY Final Resu lt [facility] [address] [place] [address], [place] [phone] * (ABNORMAL) C-REACTIVE PROTEIN (12/04/2024 6:14 AM CDT) Only the most recent of4 resultswithin the time period is included. C-REACTIVE PROTEIN 0.8(H) <0.5 mg/dL 12/04/2024 6:49 AM CDT [facility] Blood BLOOD SPECIMEN / Unknown Venipuncture / Unknown 12/04/2024 6:14 AM CDT 12/04/2024 6:23 AM CDT us Mitesh Thomas DO CHEMISTRY Final Resu lt [facility] [address] [place] [address], * CALCIUM (12/04/2024 6:14 AM CDT) Only the most recent of2 resultswithin the time period is included. CALCIUM 8.9 8.8 - 10.4 mg/dL 12/04/2024 6:49 AM CDT [facility] Comment: Reference ranges for this test were updated on 05/08/2024 to reflect our healthy population more accurately. Reference range changes are not retroactively applied to results, but previous results using the same methodology can be interpreted in the context of the new reference range. Blood BLOOD SPECIMEN / Unknown Venipuncture / Unknown 12/04/2024 6:14 AM CDT 12/04/2024 6:23 AM CDT us Mitesh Thomas DO CHEMISTRY Final Resu lt [facility] [address] [place] [address], * LACTATE VENOUS (12/03/2024 1:09 PM CDT) Only the most recent of2 resultswithin the time period is included. LACTATE,VENOUS 1.2 0.5 - 2.0 mmol/L 12/03/2024 1:36 PM CDT [facility] Blood BLOOD SPECIMEN / Unknown Butterfly / Unknown 12/03/2024 1:09 PM CDT 12/03/2024 1:12 PM CDT Mitesh Thomas DO CHEMISTRY Final Resu lt Performing Organization Address City/[facility]/ZIP Co de Phone Number [facility] [address] [place] [id number], * BUN (12/03/2024 1:09 PM CDT) BUN 14 6 - 20 mg/dL 12/03/2024 1:34 PM CDT [facility] Blood BLOOD SPECIMEN / Unknown Butterfly / Unknown 12/03/2024 1:09 PM CDT 12/03/2024 1:12 PM CDT Mitesh Thomas DO CHEMISTRY Final Resu lt [facility] [address] [place] [id number], * CT ABDOMEN PELVIS W (12/02/2024 11:23 PM CDT) Anatomical Region Laterality Modality Abdomen, Pelvis, AORTA, LIVER, SPLEEN Computed Tomography 12/02/2024 11:2 3 PM CDT Impressions 12/02/2024 11:54 PM CDT 1. Mild acute on chronic pancreatitis. No evidence for necrosis or other complication. Narrative 12/02/2024 11:54 PM CDT For Patients: As a result of the Century Cures Act, medical imaging exams and procedure reports are released immediately into your electronic medical record. You may view this report before your referring provider. If you have questions, please contact your health care provider. EXAM: CT ABDOMEN PELVIS W LOCATION: [facility] DATE: 12/02/2024 INDICATION: Abdominal pain, acute, nonlocalized pancreatitis COMPARISON: 07/04/24. TECHNIQUE: CT scan of the abdomen and pelvis was performed following injection of IV contrast. Multiplanar reformats were obtained. Dose reduction techniques were used. CONTRAST: Omnipaque 350 115mL FINDINGS: LOWER CHEST: Normal. HEPATOBILIARY: Mild hepatic steatosis and hepatomegaly. Prior cholecystectomy PANCREAS: Mild inflammation around the pancreatic head. Scattered pancreatic calcification and mild ductal ectasia. SPLEEN: Unchanged mild cortical scarring. ADRENAL GLANDS: Normal. KIDNEYS/BLADDER: No mass or hydronephrosis. BOWEL: Normal. LYMPH NODES: Normal. VASCULATURE: No aneurysm. Chronic splenic vein occlusion with collaterals. PELVIC ORGANS: Normal. MUSCULOSKELETAL: Prior right hip replacement. Procedure Note Edwin Sanchez MD - 12/02/2024 For Patients: As a result of the Cures Act, medical imagingexams and procedure reports are released immediately into your electronicmedical record. You may view this report before your referring provider.If you have questions, please contact your health care provider. EXAM: CT ABDOMEN PELVIS W LOCATION: [facility] DATE: 12/02/2024 INDICATION: Abdominal pain, acute, nonlocalized pancreatitis COMPARISON: 07/04/24. TECHNIQUE: CT scan of the abdomen and pelvis was performed followinginjection of IV contrast. Multiplanar reformats were obtained. Dosereduction techniques were used. CONTRAST: Omnipaque 350 115mL FINDINGS: LOWER CHEST: Normal. HEPATOBILIARY: Mild hepatic steatosis and hepatomegaly. Priorcholecystectomy PANCREAS: Mild inflammation around the pancreatic head. Scatteredpancreatic calcification and mild ductal ectasia. SPLEEN: Unchanged mild cortical scarring. ADRENAL GLANDS: Normal. KIDNEYS/BLADDER: No mass or hydronephrosis. BOWEL: Normal. LYMPH NODES: Normal. VASCULATURE: No aneurysm. Chronic splenic vein occlusion withcollaterals. PELVIC ORGANS: Normal. MUSCULOSKELETAL: Prior right hip replacement. IMPRESSION: 1. Mild acute on chronic pancreatitis. No evidence for necrosis or othercomplication. us Ela Ball MD CT Final Re sult * CBC WITH AUTO DIFFERENTIAL (12/02/2024 10:00 PM CDT) Only the most recent of2 resultswithin the time period is included. WHITE BLOOD COUNT 7.3 4.5 - 11.0 thou/cu mm 12/02/2024 10:49 PM CDT [facility] RED BLOOD COUNT 5.12 4.30 - 5.90 mil/cu mm 12/02/2024 10:49 PM CDT [facility] HEMOGLOBIN 14.9 13.5 - 17.5 g/dL 12/02/2024 10:49 PM CDT [facility] HEMATOCRIT 44.1 37.0 - 53.0 % 12/02/2024 10:49 PM CDT [facility] MCV 86 80 - 100 fL 12/02/2024 10:49 PM CDT [facility] MCH 29.1 26.0 - 34.0 pg 12/02/2024 10:49 PM CDT [facility] MCHC 33.8 32.0 - 36.0 g/dL 12/02/2024 10:49 PM CDT [facility] RDW 13.3 11.5 - 15.5 % 12/02/2024 10:49 PM CDT [facility] PLATELET COUNT 290 140 - 440 thou/cu mm 12/02/2024 10:49 PM CDT [facility] MPV 8.7 6.5 - 11.0 fL 12/02/2024 10:49 PM CDT [facility] NRBC 0.0 % 12/02/2024 10:49 PM CDT [facility] ABS NRBC 0.0 thou /cu mm 12/02/2024 10:49 PM CDT [facility] % NEUT 66.7 % 12/02/2024 10:49 PM CDT [facility] % LYMPH 22.6 % 12/02/2024 10:49 PM CDT [facility] % MONO 7.7 % 12/02/2024 10:49 PM CDT [facility] % EOS 1.9 % 12/02/2024 10:49 PM CDT [facility] % BASO 1.0 % 12/02/2024 10:49 PM CDT [facility] % IMMATURE GRAN (METAS,MYELOS,IN OS) 0.1 % 12/02/2024 10:49 PM CDT [facility] ABSOLUTE NEUTROPHILS 4.9 1.7 - 7.0 thou/cu mm 12/02/2024 10:49 PM CDT [facility] ABSOLUTE LYMPHOCYTES 1.7 0.9 - 2.9 thou/cu mm 12/02/2024 10:49 PM CDT [facility] ABSOLUTE MONOCYTES 0.6 <0.9 thou/cu mm 12/02/2024 10:49 PM CDT [facility] ABSOLUTE EOSINOPHILS 0.1 <0.5 thou/cu mm 12/02/2024 10:49 PM CDT [facility] ABSOLUTE BASOPHILS 0.1 <0.3 thou/cu mm 12/02/2024 10:49 PM CDT [facility] ABSOLUTE IMMATURE GRANULOCYTES(MET ,MYELOS,PROS) 0.0 <0.3 thou/cu mm 12/02/2024 10:49 PM CDT [facility] Blood BLOOD SPECIMEN / Unknown IV Start / Unknown 12/02/2024 10:00 PM CDT 12/02/2024 10:46 PM CDT us Ela Ball MD HEMATOLOGY Final Re sult Performing Organization Address City/[facility]/ZIP Co de Phone Number [facility] [address] [place] [phone], * (ABNORMAL) LIPASE (12/02/2024 10:00 PM CDT) LIPASE 99.3(H) 13.0 - 60.0 IU/L 12/02/2024 11:06 PM CDT [facility] Blood BLOOD SPECIMEN / Unknown IV Start / Unknown 12/02/2024 10:00 PM CDT 12/02/2024 10:46 PM CDT Ela Ball MD CHEMISTRY Final Re sult Performing Organization Address [facility]/ZIP Co de Phone Number [facility] [address] [place] [address], * (ABNORMAL) COMP METABOLIC PANEL (12/02/2024 10:00 PM CDT) SODIUM 136 136 - 145 mmol/L 12/02/2024 11:06 PM CDT [facility] POTASSIUM 3.6 3.5 - 5.1 mmol/L 12/02/2024 11:06 PM CDT [facility] CHLORIDE 95(L) 98 - 107 mmol/L 12/02/2024 11:06 PM CDT [facility] CO2,TOTAL 23 22 - 29 mmol/L 12/02/2024 11:06 PM CDT [facility] ANION GAP 18 5 - 18 12/02/2024 11:06 PM CDT [facility] GLUCOSE 163(H) 70 - 99 mg/dL 12/02/2024 11:06 PM CDT [facility] CALCIUM 9.2 8.8 - 10.4 mg/dL 12/02/2024 11:06 PM CDT [facility] Comment: Reference ranges for this test were updated on 05/08/2024 to reflect our healthy population more accurately. Reference range changes are not retroactively applied to results, but previous results using the same methodology can be interpreted in the context of the new reference range. BUN 19 6 - 20 mg/dL 12/02/2024 11:06 PM T [facility] CREATININE 1.13 0.70 - 1.20 mg/dL 12/02/2024 11:06 PM CDT [facility] BUN/CREAT RATIO 17 10 - 20 11:06 PM T [facility] eGFR 85(L) >90 mL/min/1.7 3m2 12/02/2024 11:06 PM T [facility] Comment:As of 2021, eG FR is calculated by the CKD-EPI creatinine equation without race adjustment. eGFR can be influenced by muscle mass, exercise, and diet. The reported eGFR is an estimation only and is only applicable if the renal function is stable. ALBUMIN 4.7 4.0 - 4.9 g/dL 12/02/2024 11:06 PM T [facility] PROTEIN,TOTAL 7.4 6.0 - 8.0 g/dL 12/02/2024 11:06 PM T [facility] BILIRUBIN,TOTAL 0.3 0.0 - 1.2 mg/dL 12/02/2024 11:06 PM T [facility] ALK PHOSPHATASE 147(H) 40 - 129 IU/L 12/02/2024 11:06 PM T [facility] ALT (SGPT) 69(H) 10 - 50 IU/L 12/02/2024 11:06 PM T [facility] AST (SGOT) 36 10 - 50 IU/L 12/02/2024 11:06 PM CDT [facility] Blood BLOOD SPECIMEN / Unknown IV Start / Unknown 12/02/2024 10:00 PM CDT 12/02/2024 10:46 PM CDT us Ela Ball MD CHEMISTRY Final Re sult [facility] [address] [place] [address], * US VENOUS LOWER EXTREMITY RIGHT PORTABLE (11/16/2024 8:08 AM CDT) Anatomical Region Laterality Modality LEGS, LEG R Ultrasound 11/16/2024 8:08 AM CDT Impressions 11/16/2024 8:13 AM CDT 1. No deep venous thrombosis in the right lower extremity. 2. Subcutaneous edema in the right lower leg. Narrative 11/16/2024 8:13 AM CDT For Patients: As a result of the Cures Act, medical imaging exams and procedure reports are released immediately into your electronic medical record. You may view this report before your referring provider. If you have questions, please contact your health care provider. EXAM: US VENOUS LOWER EXTREMITY RIGHT PORTABLE LOCATION: [facility] DATE: 11/16/2024 INDICATION: Swelling COMPARISON: None. TECHNIQUE: Venous Duplex ultrasound of the right lower extremity with and without compression, augmentation and duplex. Color flow and spectral Doppler with waveform analysis performed. FINDINGS: Exam includes the common femoral, femoral, popliteal, and contralateral common femoral veins as well as segmentally visualized deep calf veins and greater saphenous vein. RIGHT: No deep vein thrombosis. No superficial thrombophlebitis. No popliteal cyst. Subcutaneous edema in the lower leg. Procedure Note José Miguel Garrett MD - 11/16/2024 For Patients: As a result of the Cures Act, medical imagingexams and procedure reports are released immediately into your electronicmedical record. You may view this report before your referring provider.If you have questions, please contact your health care provider. EXAM: US VENOUS LOWER EXTREMITY RIGHT PORTABLE LOCATION: [facility] DATE: 11/16/2024 INDICATION: Swelling COMPARISON: None. TECHNIQUE: Venous Duplex ultrasound of the right lower extremity with andwithout compression, augmentation and duplex. Color flow and spectralDoppler with waveform analysis performed. FINDINGS: Exam includes the common femoral, femoral, popliteal, andcontralateral common femoral veins as well as segmentally visualized deepcalf veins and greater saphenous vein. RIGHT: No deep vein thrombosis. No superficial thrombophlebitis. Nopopliteal cyst. Subcutaneous edema in the lower leg. IMPRESSION: 1. No deep venous thrombosis in the right lower extremity. 2. Subcutaneous edema in the right lower leg. us Derrell Cristobal MD US Final Res ult * PROTIME-INR (11/16/2024 7:34 AM CDT) INR 1.0 <1.3 11/16/2024 8:09 AM CDT [facility] PROTIME 11.5 10.6 - 12.4 sec 11/16/2024 8:09 AM CDT [facility] Blood BLOOD SPECIMEN / Unknown IV Start / Unknown 11/16/2024 7:34 AM CDT 11/16/2024 7:40 AM CDT Narrative [facility] - 11/16/2024 8:09 AM CDT Therapeutic Range 2.0-3.0 for most anticoagulated patients 2.5-3.5 or 4.0 for high risk patients The INR is only used for patients on stable oral anticoagulant therapy. It makes no significant contribution to the diagnosis or treatment of patients whose Protime is prolonged for other reasons. INR results are increased when heparin levels exceed 1.0 U/mL, which corresponds to an aPTT >125 seconds if the patient is on UFH. us Derrell Cristobal MD HEMATOLOGY Final Res ult [facility] [address] [id number], * (ABNORMAL) BASIC METABOLIC PANEL (11/16/2024 7:34 AM CDT) SODIUM 135(L) 136 - 145 mmol/L 11/16/2024 7:59 AM CDT [facility] POTASSIUM 3.9 3.5 - 5.1 mmol/L 11/16/2024 7:59 AM CDT [facility] CHLORIDE 99 98 - 107 mmol/L 11/16/2024 7:59 AM CDT [facility] CO2,TOTAL 23 22 - 29 mmol/L 11/16/2024 7:59 AM CDT [facility] ANION GAP 13 5 - 18 11/16/2024 7:59 AM CDT [facility] GLUCOSE 162(H) 70 - 99 mg/dL 11/16/2024 7:59 AM CDT [facility] CALCIUM 9.3 8.8 - 10.4 mg/dL 11/16/2024 7:59 AM CDT [facility] Comment: Reference ranges for this test were updated on 05/08/2024 to reflect our healthy population more accurately. Reference range changes are not retroactively applied to results, but previous results using the same methodology can be interpreted in the context of the new reference range. BUN 17 6 - 20 mg/dL 11/16/2024 7:59 AM CDT [facility] CREATININE 1.03 0.70 - 1.20 mg/dL 11/16/2024 7:59 AM CDT [facility] BUN/CREAT RATIO 17 10 - 20 7:59 AM CDT [facility] eGFR >90 >90 mL/min/1.7 3m2 11/16/2024 7:59 AM CDT [facility] Comment:As of 2021, eG FR is calculated by the CKD-EPI creatinine equation without race adjustment. eGFR can be influenced by muscle mass, exercise, and diet. The reported eGFR is an estimation only and is only applicable if the renal function is stable. Blood BLOOD SPECIMEN / Unknown IV Start / Unknown 11/16/2024 7:34 AM CDT 11/16/2024 7:40 AM CDT Derrell Cristobal MD CHEMISTRY Final Res ult [facility] [address] [place], [place] [id number], [place] [phone] * ANTI HCV (11/07/2024 3:08 PM CDT) HEPATITIS C ANTIBODY NON-REACTI VE NON-REACT PAVEL [facility] Comment: HCV antibody was non-reactive. There is no laboratory evidence of HCV infection. In most cases, no further action is required. However, if recent HCV exposure is suspected, a test for HCV RNA (test code 19563) is suggested. For additional information please refer to http://education.[employer]/faq/XQJ83k5 (This link is being provided for informational/ educational purposes only.) Blood BLOOD SPECIMEN / Unknown 11/07/2024 3:08 PM CDT 11/07/2024 3:11 PM CDT Narrative [facility] - 11/08/2024 1:12 PM CDT FASTING:NO FASTING: NO Abdiaziz Nelson MD SEND OUTS Final Result [facility] [address] [place] [address], [place] [phone] [facility] [address] [facility] [email or web address] [address] * ANTI HIV 1/2 (03/03/2016 12:21 PM CDT) HIV-1/HIV-2 ANTIBODY Non-Reacti ve Non-Reacti ve 03/03/2016 9:08 PM CDT [facility] Blood BLOOD SPECIMEN / Unknown Venipuncture / Unknown 03/03/2016 12:21 PM CDT 03/03/2016 12:22 PM CDT Narrative [facility] - 03/03/2016 9:08 PM CDT HIV-1 p24 and HIV-1/HIV-2 Ab not detected us Gurdeep Palacio MD SEND OUTS Final Result [facility] 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 Do not delete or resolve the Infection Flag. Added from external infection. Source: [facility]. 02/07/2023 Insurance [facility] [place] [id number] [facility] [address] [facility] Member Subscriber Plan / Payer (Ef fective 2014-Present) Name:Edwin Heredia Member ID:[id number] 01 Relation to Subscriber:Employee Name:LUCINA PAT Subscriber ID:[id number] 01 Date of :2000 (Home) Address: [address] [address] [address] Payer ID:Not on file Group ID:Not on file Type:Not on file Address: [address] [facility] [address] [place] [address] [facility]AN CAREY [facility] [address] [facility] [address] [place] [address] * Guarantor: DENIS SALDANA Account Type Relation to Patient Date of Phone Billing Address [facility] [address] [place] [address] Advance Directives * Full Code (Latest Code Status on File) Date Activated Date Inactivated Comments 12/03/2024 3:52 AM 12/04/2024 10:48 AM Question Answer Comments Code Status Discussion: Reviewed Preferences * Full Code Date Activated Date Inactivated Comments 11/16/2024 9:25 AM 11/18/2024 12:09 PM Question Answer Comments Code Status Discussion: Reviewed Preferences * Full Code Date Activated Date Inactivated Comments 07/04/2024 4:26 PM 07/04/2024 11:16 PM Question Answer Comments Code Status Discussion: Reviewed Preferences * Full Code Date Activated Date Inactivated Comments 01/16/2016 7:09 PM 01/25/2016 12:06 PM * Full Code Date Activated Date Inactivated Comments 01/16/2016 4:09 PM 01/16/2016 7:09 PM Care Teams Grounds Maintenance Supervisor Relationship Specialty Start Date End Date Maryse Rachel DO [address] [place] [address] PCP - General Family Practice 11/14/24
== END 2025-02-14 08:52 | disposition home or self-care (01) ==
LOC: ED 08:48
PROVIDERS: Emergency Provider Emergency Medicine
DX: S61.011A Laceration without foreign body of right thumb without damage to nail, initial encounter (principal); W45.8XXA Other foreign body or object entering through skin, initial encounter; Y99.0 Civilian activity done for income or pay
CPT/HCPCS: 12001; 99282; 99283